=== PATIENT | female | born 1985 | race Caucasian/White ===

== ENCOUNTER 2016-03-19 06:29 | Day surgery (SDC) | payer OTHER ==
[~2016-03-19] VITALS: Ht 147.3 cm; Wt 76.8 kg
[2016-03-19] VITALS (13 sets, daily range): BP systolic 110–135; BP diastolic 57–87; PULSE 65–99; RESP 10–17; O2SAT 89–100
[~2016-03-19 06:29] MED LIST: CeFAZolin 2 Gm/50 mL D5W IV Premix IV ONE; Lactated Ringer's 1,000 ML IV SCH
[2016-03-19] MEDS ORDERED: HYDROmorphone 2 mg/mL Inj ONE (06:30)
[2016-03-19] MEDS ORDERED: Propofol 10,000 mCg/mL 20 mL Inj ONE (06:30)
[2016-03-19] MEDS ORDERED: fentaNYL-PF 50 mCg/mL 2 mL Inj ONE (06:30)
[2016-03-19] MEDS ORDERED: Phenylephrine/NS 100 mCg/mL 10 mL Syringe IVPUSH ONE (06:30)
[2016-03-19] MEDS ORDERED: Ondansetron 2 mg/mL 2 mL Inj ONE (06:30)
[2016-03-19] MEDS ORDERED: Lidocaine PF 1% 30 mL Inj ONE (06:30)
[2016-03-19] MEDS ORDERED: Dexamethasone 4 mg/mL Inj ONE (06:30)
[2016-03-19] MEDS ORDERED: Lactated Ringer's 1,000 ML IV ONE (07:27)
--- NOTE | 2016-03-19 08:00 | PCM.HPANE ---
Patient Data Date of Service: Mar 19, 2016 Surgeon Admitting Provider: Attending Provider:Rhett Cadena MD Primary Care Physician:Adan Other Provider:Jacquelyn Ji Anesthesia Reason for Visit Bilateral Breast Macromastia,Back Pain,Rash Ht/WT & BMI Height (Feet): 4 Height (Inches): 10 Weight (Kilograms): 76.8 Body Mass Index 35.00 Allergies Coded Allergies: No Known Allergies (Unverified , 03/14/16) Past Anesthesia History Anesthesia History: Denies:: Abnormal Airway, Anesthesia Reactions, Difficult Intubation, Fam Anesthesia Reaction, Malignant Hyperthermia Diabetes History Hx Diabetes?: No MRSA MRSA: No Medications Hypertension Medication: No Home Meds Incl Beta Madhavi: No No Active Prescriptions or Reported Meds Last Time Dose Received Zoloft 50 mg History History of ENT Problems?: No HEENT History: Denies:: Abnormal Airway Cataracts Difficult Intubation Dysphagia Glaucoma Hearing Problem Sinus Problem TMJ Hx of Heart Problems?: No Cardiovascular History: Denies:: AICD Abdominal Aortic Aneurism Chest Pain Congestive Heart Failure Coronary Artery Disease Edema Heart Murmur Hypertension Irregular Heartbeat Pacemaker Hx of Respiratory Problem?: No Respiratory History: Denies:: Asthma COPD Emphysema Oxygen Administration Pneumonia Tuberculosis Use of C-PAP Machine Use of Inhalers / NEBS Hx Neurologic Problems?: Yes Neurological History: Positive for:: Headaches (every 6 weeks or so) Denies:: Alzheimer's Disease Dementia Dizziness Multiple Sclerosis Parkinson's Disease Seizures Hx of GI Problems?: No Gastrointestinal History: Denies:: Cirrhosis Gall Bladder Disease Gastroesphageal Reflux Gastrointestinal Bleeding Heartburn Hepatitis Hiatal Hernia Liver Disease Rectal Bleeding Hx of Problems?: No Genitourinary History: Denies:: Kidney Stones Urinary Tract Infection Female Hx: Positive for:: Problems with Breasts? (current admission problem macromastia) Denies:: Currently Skin History: Denies:: History Skin Disorders? Pressure Ulcers Hx Musculoskeletal Problems?: Yes Musculoskeletal History: Positive for:: Back Injury (low back and hip pain) Denies:: Fibromyalgia Joint Replacement Musculoskeletal Trauma Myasthenia Gravis Osteoarthritis Rheumatoid Arthritis Systemic Lupus Hx of Psycho/Social Problems?: Yes Psycho Social History: Positive for:: Anxiety Denies:: Hx Depression Hx Surgeries?: Yes (C sections x 2) Hx Any Other Health Problems?: Yes Other History: Denies:: Cancer Thyroid Disease History Blood Transfusions: Positive for:: Accept Blood Products? Denies:: Blood Transfusions Hx Diabetes: No Hx Alcohol Use: YesAlcoholic Drinks Per Day: 1-2 times monthlyHx Substance Use : No Smoking Status: Current Every Day Smoker (quit 3 weeks ago) Have You Smoked inLast 12 mo: Yes Stop/Bang Treated for Sleep Apnea?: No Do You Have a CPAP Machine?: No S-Snoring: Do You Snore Loudly: No T-Tired: feel tired, fatigued: No O-Obsered: Observed not breath: Yes P-Blood Pressure: treated: No B- Body Mass Index > 35 kg/m2: No A- Age over 50: No N- Neck Large Circumference: No G- Gender Male: No KEVIN Total Score: 1 KEVIN Risk Assessment: Low Risk, <3 Yes Risk Assessment Category Category 1A: Patient has history of documented sleep apnea, and HAS NOT received any narcotic, sedative or anesthesia administration during this stay. Category 1B: Patient has history of documented sleep apnea, and HAS received any narcotic , sedative or anesthesia administration during this stay Category 2: Patient has SUSPECTED Obstructive Sleep Apnea, and HAS received any narcotic , sedative or anesthesia administration during this stay. Category 3: Patient has SUSPECTED Obstructive Sleep Apnea and HAS NOT received narcotic, sedative or anesthesia administration during this stay. Category 4: Outpatient in Procedural Areas with known sleep apnea or who screen positive for High Risk via the STOP/BANG questionnaire. Exam Exam Vital Signs Vital Signs Date Time Temp Pulse Resp B/P Pulse Ox O2 Delivery O2 Flow Rate FiO2 03/19/16 06:50 36.4 65 17 112/65 99 Room Air General Appearance: Alert, Oriented X3, Cooperative HEENT/AIRWAY: MP 2, Neck Movement (Full), Mouth Opening (Wide) Lungs: Clear to Auscultation, Normal Air Movement Heart: Regular Rate/Rhythm, Normal S1, Normal S2 Meds/Labs/Diagnostics Admission Meds Current Medications Lactated Ringer's (Lr) 1,000 ml @ ud STK-MED ONCE IV Last administered on t 07:27; Start 03/19/16 at 07:27; Stop 03/19/16 at 07:28; Status DC Plan Impression Patient chart reviewed, patient interviewed and anesthestic plan with risks, benefits, and alternatives discussed, and informed consent obtained. NPO Status: > 8 hours solids, > 2 hours liquids ASA Physical Status: ASA2 Mod Systemic Disease Anesthetic Plan: GA Bene/Risks/Altern/Consents: Yes HP Complete Prior to Induction: Yes Sabas Yang MD Mar 19, 2016 07:51
[2016-03-19] MEDS ORDERED: Lactated Ringer's 500 ML IV PRN (08:02)
[2016-03-19] MEDS ORDERED: Lactated Ringer's 1,000 ML IV SCH (08:02)
[2016-03-19] MEDS ORDERED: Labetalol 5 mg/mL 4 mL Inj IV PRN (08:05)
[2016-03-19] MEDS ORDERED: Dexamethasone 4 mg/mL Inj IVPUSH PRN (08:05)
[2016-03-19] MEDS ORDERED: MetoCLOpramide 5 mg/mL 2 mL Inj IVPUSH PRN (08:05)
[2016-03-19] MEDS ORDERED: Atropine 0.4 mg/mL Inj IVPUSH PRN (08:05)
[2016-03-19] MEDS ORDERED: Ondansetron 2 mg/mL 2 mL Inj IVPUSH PRN (08:05)
[2016-03-19] MEDS ORDERED: Phenylephrine 10,000 mCg/mL Inj IVPUSH PRN (08:05)
[2016-03-19] MEDS ORDERED: EPHEDrine Sulfate 50 mg/mL Inj IVPUSH PRN (08:05)
[2016-03-19] MEDS ORDERED: hydrALAZINE 20 mg/mL Inj IVPUSH PRN (08:05)
[2016-03-19] MEDS ORDERED: HYDROmorphone 1 mg/mL Inj IVPUSH PRN (08:05)
--- NOTE | 2016-03-19 11:06 | PCM.ANEP1 ---
Post Anesthesia Phase 1 PACU Phase 1 Assessment Date of Service: Mar 19, 2016 Vital Signs PACU 100% on 10L, HR 92, RR, 10, BP 321/87, T 36.4 Vital Signs Date Time Temp Pulse Resp B/P Pulse Ox O2 Delivery O2 Flow Rate FiO2 03/19/16 06:50 36.4 65 17 112/65 99 Room Air Anesthetic Administered: GA Level of Alertness: Sleepy, easy to arouse STEVENS's with Equal Strength: Yes Pain: No Nausea or Vomiting: No Oxygen Delivery: Simple Mask Lungs: Normal Air Movement Sabas Yang MD Mar 19, 2016 11:06
[2016-03-19] MEDS: fentaNYL-PF 50 mCg/mL 2 mL Inj IVPUSH PRN ×2 (11:25→11:34)
[2016-03-19] MEDS ORDERED: oxyCODONE-Acetamin 5-325 mg Tablet PO PRN (11:25)
--- NOTE | 2016-03-19 14:33 | PCM.ANEP2 ---
Post Anesthesia Evaluation ASA/CMS Post Anesthesia Date of Service: Mar 19, 2016 VS in Patient's Normal Range?: Yes Resp Stable; Airway Patent?: Yes CV Function & Hydration Stable: Yes Mental Status Recovered?: Yes Pain control Satisfactory?: Yes N/V Control Satisfactory?: Yes Sabas Yang MD Mar 19, 2016 14:33
--- NOTE | 2016-03-19 17:38 | OP ---
[address] [address] OPERATIVE REPORT PATIENT: NEWTON WHITT : 1985 MR#: [id number] ADMIT: 03/19/2016 JOB ID: [id number] DATE OF SURGERY: 03/19/2016 PREOPERATIVE DIAGNOSIS(ES): Bilateral symptomatic macromastia. POSTOPERATIVE DIAGNOSIS(ES): Bilateral symptomatic macromastia. PROCEDURE: Bilateral breast reduction. SURGEON: Rhett Cadena MD DAIRY PROCESSING SUPERVISOR: Elissa Miguel PA-C, who was present for necessary retraction, exposure and closure of incisions. ANESTHESIA: General anesthesia. ESTIMATED BLOOD LOSS: 70 cc. COMPLICATIONS: None apparent. SPECIMEN: Bilateral breast tissue to Pathology; right side 0.84 kg, left side 0.8 kg. DRAINS: Bilateral #15 round Maicol drains, one on each side. INDICATIONS FOR PROCEDURE: This is a 31-year-old female patient with history of bilateral symptomatic macromastia. Patient has the typical constellation of symptoms including upper back pain, neck pain, bra strap grooving, and inframammary rash. Her symptoms have been refractory to conservative management. At this point, bilateral breast reduction is indicated. PROCEDURE/FINDINGS: The patient was identified in the preoperative area. Surgical site was marked. With patient in sitting position, I marked patient's midline. The sternal notch was marked. Inframammary folds were marked. Paul pattern incisions were then marked. The new nipple position was measured to be 18.5 cm from the sternal notch. The Paul pattern limbs were set at 8 cm. Patient was then taken back to the operating room and placed supine on the operating table. Appropriate time-outs were taken. General anesthesia was induced smoothly. The patient was then prepped and draped in the usual sterile manner. I first turned my attention to the right breast. Using a 38 mm nipple sizer, a new nipple-areolar complex was marked. The inferior pedicle was then marked and was 9 cm at the base and 7 cm at the level of the inferior border of the nipple-areolar complex. Incision was then made around the nipple-areolar complex. A second incision was then made around the inferior pedicle. Intervening skin was de-epithelialized. Once this has been done, incision was then made around the rest of the Paul pattern incision. This was done with a #10 blade. Incision was then deepened down into the subcutaneous tissue with electrocautery. The incision was then carried around the inferior pedicle. I first turned my attention to elevating the superior skin flaps. Medially, the skin flap was elevated at 2 cm thickness. I thickened the flap as I approached the chest, was approximately 3.5 cm. The superior lateral skin flap was elevated off the breast capsule. Once the dissection had reached the chest wall, I turned my attention to developing the inferior pedicle. Again, incision was deepened down toward the chest wall with electrocautery while flaring out, capturing as many pedicles as possible. Medially and laterally the incision was deepened down to the chest wall. Superiorly the incision was carried beyond the breast tissue to the posterior breast fascia which was then followed down to the chest wall. Once this had been done, the dissection plane was connected to with electrocautery allowing the intervening breast tissue and soft tissue to be removed. This was passed off to Pathology as a specimen. Hemostasis was obtained with electrocautery. At this point, the incisions were temporarily stapled together. A new nipple-areolar complex was marked with a 38 mm nipple sizer centered at 7 cm from the inframammary fold. Incision was then made around the keyhole with a #15 blade. Incision was then deepened through the skin flap allowing the keyhole to be removed. The nipple was then externalized. A #15 round Maicol drain was then placed into the surgical site. It was then secured using a 3-0 nylon drain stitch. The incisions were then reapproximated first with a layer of 3-0 Monocryl deep dermal suture, followed by 4-0 Monocryl running subcuticular suture. I then turned my attention to the left breast. Again, the nipple-areolar complex was marked with a 38 mm nipple sizer and inferior pedicle was marked in a similar manner. Incisions were then made around the nipple-areolar complex and the inferior pedicle with intervening skin de-epithelialized. Superior skin flaps were then elevated in a similar manner to the right side. The inferior pedicle was then developed similarly. The intervening tissue was then elevated off the chest wall and passed off to Pathology as a specimen. Hemostasis was obtained with electrocautery. Incisions were then temporarily stapled together. The new nipple-areolar complex keyhole was then marked with a 38 mm nipple sizer at 7 cm from the inframammary fold. The keyhole was then removed; first with a #10 blade followed by electrocautery. The nipple was then externalized. The incision was then reapproximated again; first with a layer of 3-0 Monocryl deep dermal suture, followed by 4-0 Monocryl running subcuticular suture. Prior to closure, drain was placed in the surgical site exiting at the lateral end of the inframammary incision. The patient tolerated the procedure well. Needle count, sponge count, instrument counts were correct at the end of the procedure. Patient was extubated and transported to recovery in stable condition. The right sided specimen weighed 0.84 kg. The left side weighed 0.8 kg.
--- NOTE | 2016-03-21 14:57 | PATH ---
SURGICAL PATHOLOGY Attending Physician:Rhett Cadena CASE STATUS: Signed Out PATIENT NAME: NEWTON WHITT PID: [id number] : 1985 DATE COLLECTED:03/19/2016 19:40 SPECIMEN: 1: Breast Reduction 2: Breast Reduction CLINICAL HISTORY: BILATERAL MACROMASTIA 1). RIGHT BREAST TISSUE 2). LEFT BREAST TISSUE FINAL DIAGNOSIS: 1.RIGHT BREAST TISSUE: BENIGN BREAST TISSUE (820 GRAMS), NEGATIVE FOR ATYPIA AND NEOPLASIA. 2.LEFT BREAST TISSUE: BENIGN BREAST TISSUE (789 GRAMS), NEGATIVE FOR ATYPIA AND NEOPLASIA. ICD10 CODE N62 GROSS DESCRIPTION: The specimens are received in formalin, labeled with the patient's name, and sublabeled as the following: (1) right breast tissue; (2) left breast tissue. (1) The specimen consists of multiple pieces of breast tissue (820 g, 22.5 x 18.6 x 5.81 cm in aggregate) partially covered by skin (13.5 x 13.3 cm). The breast tissue is fibrofatty with no nodules, masses or lesions identified. The skin is su-white and unremarkable. Section code: (1A, 1B) breast tissue, financial service representative. (2) The specimen consists of multiple pieces of breast tissue (789 g, 19.3 x 14.8 x 4.7 cm in aggregate) partially covered by skin (16.5 x 13.8 cm). The breast tissue is fibrofatty with no nodules, masses or lesions identified. The skin is su-white and unremarkable. Section code: (2A, 2B) breast tissue, financial service representative. 01/19/16 MICRO DESCRIPTION: See diagnosis. ICD-9 CODES: CPT CODES: 1: 17697 2: 67633 Electronically Signed Out Nelly Lopez MD [facility] [address], [place] [address] Technical component performed at [facility], [address], [place], [address]
== END 2016-03-19 23:59 | disposition home or self-care (01) ==
LOC: SAS 06:29
PROVIDERS: ATTEND Plastic Surgery
DX: N62 Hypertrophy of breast (principal); R21 Rash and other nonspecific skin eruption; M54.9 Dorsalgia, unspecified; F41.9 Anxiety disorder, unspecified; F17.210 Nicotine dependence, cigarettes, uncomplicated
CPT/HCPCS: 19318; J0690; J1100; J1170; J2250; J2370; J2405; J7120